=== PATIENT | male | born 1990 | race Caucasian/White ===

== ENCOUNTER 2016-12-20 14:36 | Emergency (ER) | payer SELFPAY ==
[~2016-12-20] VITALS: Ht 175.3 cm; Wt 66.2 kg
[~2016-12-20 14:36] MED LIST: ANTISEIZURE MED PO; BENTYL10 MG PO; CIPROFLOXACIN500 M1 PO; CYCLOBENZAPRINE10 MG PO; CYCLOBENZAPRINE5 MG PO; DICYCLOMINE HCL10 MG PO; DILAUDID8 MG PO; FLEXERIL10 MG PO; GABAPENTIN300 MG PO; METRONIDAZOLE500 MG PO; NAPROXEN500 MG PO; NOHOMEMEDS; PREDNISONE10 MG PO; ULTRAM50 MG PO; ZOLPIDEM TARTRA10 MG PO
[2016-12-20 15:46] LABS: CHLORIDE 107 mEq/L (99-109); POTASSIUM 3.6 mEq/L (3.7-5.4); SODIUM 140 mEq/L (136-147)
[2016-12-20 15:49] LABS: GLUCOSE 113 mg/dL (70-99)
[2016-12-20 15:50] LABS: ANION GAP 10 MEQ/L (2-14)
[2016-12-20 15:51] LABS: TOTAL BILIRUBIN 0.4 mg/dL (0.0-1.0)
[2016-12-20 15:52] LABS: ALKALINE PHOSPHATASE 71 IU/L (3-129); GFR ESTIMATE (CALCULATED) > 59 mL/min/
[2016-12-20 15:53] LABS: UREA NITROGEN (BUN) 15 mg/dL (9-23)
[2016-12-20 15:56] LABS: CREATINE KINASE 272 IU/L (1-294); EOSINOPHIL (%) 3.7 % (0-5); EOSINOPHIL COUNT 0.3 K/uL (0-0.3); HEMATOCRIT 42.3 % (38.0-50.0); IMMATURE GRANULOCYTE (%) 0.9 % (0.0-0.7); IMMATURE GRANULOCYTE COUNT 0.7 K/uL; LIPASE 35 U/L (1.0-51.0); MCH 29.2 PG (29.0-34.0); MCHC 34.5 G/DL (30.0-36.0); MCV 84.6 FL (86-99); MEAN PLAT.VOLUME 9.3 uM^3 (9.0-12.4); MONOCYTE (%) 6.5 % (3-12); MONOCYTE COUNT 0.5 K/uL (0-0.8); NEUTROPHIL COUNT 3.8 K/uL (1.8-6.4); PLATELET COUNT 320 K/uL (156-360); RBC DIS.WIDTH-SD 39.7 % (39-53); WHITE BLOOD COUNT 7.7 K/uL (4.1-10.2)
[2016-12-20 17:16] LABS: ADD MIUA? YES; BILIRUBIN NEGATIVE; BLOOD LARGE; COLOR YELLOW ((YELLOW)); GLUCOSE (STRIP) NEGATIVE; KETONES NEGATIVE; LEUKOCYTES NEGATIVE; NITRITE NEGATIVE; PROTEIN (STRIP) NEGATIVE; SPECIFIC GRAVITY 1.025 (1.000-1.030); UROBILINOGEN 0.2 MG/DL (0.2-1.0)
[2016-12-20 17:19] LABS: BACTERIA NONE SEEN /HPF; EPITHELIAL CELLS RARE /HPF; MUCUS 1+ /LPF; RED BLOOD CELLS TNTC /HPF (0-5); UCUL ADDED? NO; WHITE BLOOD CELLS 0-5 /HPF (0-5)
[2016-12-20] MEDS ORDERED: IBUPROFEN600 MG PO (19:18)
[2016-12-20] MEDS ORDERED: DELZICOL400 M1 PO (19:21)
[2016-12-20] MEDS ORDERED: IBUPROFEN800 MG PO (19:22)
[2016-12-20] MEDS ORDERED: KEPPRA500 MG PO (19:22)
[2016-12-20] MEDS ORDERED: AMOXICILLIN500 MG PO (19:22)
[2016-12-20] MEDS ORDERED: ULTRAM50 MG PO (20:31)
[2016-12-20] MEDS ORDERED: MOTRIN600 MG PO (20:31)
[2016-12-20 21:04] VITALS: BP 123/83
[2016-12-21 12:03] LABS: CHLAMYDIA TRACHOMATIS NEGATIVE; NEISSERIA GONORRHOEAE NEGATIVE
== END 2016-12-20 21:05 | disposition left against medical advice (07) ==
LOC: EME 14:36
PROVIDERS: Physician Assistant
DX: J98.2 Interstitial emphysema (principal); R10.31 Right lower quadrant pain; R31.9 Hematuria, unspecified; R30.0 Dysuria; Z88.6 Allergy status to analgesic agent; Z91.013 Allergy to seafood
CPT/HCPCS: 71275; 74177; 80053; 81003; 82550; 83690; 85025; 87086; 87491; 87591; 99281; 99285; J1885; J7030

== ENCOUNTER 2016-12-21 12:01 | Emergency (ER) | payer SELFPAY ==
[~2016-12-21] VITALS: Ht 175.3 cm; Wt 67.0 kg
[~2016-12-21 12:01] MED LIST changes: +AMOXICILLIN500 MG PO; +DELZICOL400 M1 PO; +IBUPROFEN600 MG PO; +IBUPROFEN800 MG PO; +KEPPRA500 MG PO; +MOTRIN600 MG PO
[2016-12-21 13:27] LABS: HEMATOCRIT 42.3 % (38.0-50.0); MCH 29.1 PG (29.0-34.0); MCV 85.5 FL (86-99); MEAN PLAT.VOLUME 9.6 uM^3 (9.0-12.4); PLATELET COUNT 328 K/uL (156-360); RBC DIS.WIDTH-CV 12.9 % (11.8-14.6); RBC DIS.WIDTH-SD 39.8 % (39-53); RED BLOOD COUNT 4.95 M/uL (4.00-5.50); WHITE BLOOD COUNT 7.6 K/uL (4.1-10.2)
[2016-12-21 14:00] LABS: CHLORIDE 107 mEq/L (99-109); SODIUM 139 mEq/L (136-147)
[2016-12-21 14:02] LABS: GLUCOSE 89 mg/dL (70-99)
[2016-12-21 14:03] LABS: ANION GAP 9 MEQ/L (2-14)
[2016-12-21 14:06] LABS: GFR ESTIMATE (CALCULATED) > 59 mL/min/; UREA NITROGEN (BUN) 8 mg/dL (9-23)
[2016-12-21 14:21] VITALS: BP 133/81
== END 2016-12-21 14:21 | disposition home or self-care (01) ==
LOC: EME 12:01 → RME 12:01
DX: J93.9 Pneumothorax, unspecified (principal); Z09 Encounter for follow-up examination after completed treatment for conditions other than malignant neoplasm; R06.00 Dyspnea, unspecified; R07.9 Chest pain, unspecified; Z91.81 History of falling; G40.909 Epilepsy, unspecified, not intractable, without status epilepticus; Z87.891 Personal history of nicotine dependence
CPT/HCPCS: 71020; 80048; 85027; 99281; 99284

== ENCOUNTER 2017-02-23 12:32 | Emergency (ER) | payer SELFPAY ==
[~2017-02-23] VITALS: Ht 175.3 cm; Wt 65.9 kg
[2017-02-23 13:14] LABS: HEMATOCRIT 45.9 % (38.0-50.0); MCH 28.7 PG (29.0-34.0); MCHC 33.1 G/DL (30.0-36.0); MCV 86.6 FL (86-99); PLATELET COUNT 362 K/uL (156-360); RBC DIS.WIDTH-CV 13.6 % (11.8-14.6); RBC DIS.WIDTH-SD 43.1 % (39-53); WHITE BLOOD COUNT 6.3 K/uL (4.1-10.2)
[2017-02-23 13:32] LABS: CHLORIDE 105 mEq/L (99-109); POTASSIUM 4.2 mEq/L (3.7-5.4); SODIUM 139 mEq/L (136-147)
[2017-02-23 13:34] LABS: GLUCOSE 92 mg/dL (70-99)
[2017-02-23 13:35] LABS: ANION GAP 9 MEQ/L (2-14); TROP-I INTERPRETATION NEGATIVE; TROPONIN-I < 0.01 ng/mL (0.0-0.30)
[2017-02-23 13:38] LABS: GFR ESTIMATE (CALCULATED) > 59 mL/min/
[2017-02-23 13:39] LABS: UREA NITROGEN (BUN) 12 mg/dL (9-23)
[2017-02-23] MEDS ORDERED: PROVENTIL HFA6.7 GM IH (14:08)
[2017-02-23] MEDS ORDERED: ZITHROMAX Z-PA250 MG PO (14:09)
[2017-02-23 14:18] VITALS: BP 133/91
== END 2017-02-23 14:19 | disposition home or self-care (01) ==
LOC: EME 12:32
PROVIDERS: Emergency Medicine
DX: J20.9 Acute bronchitis, unspecified (principal); R42 Dizziness and giddiness; Z87.891 Personal history of nicotine dependence
CPT/HCPCS: 71020; 80048; 84484; 85027; 93005; 94640; 99281; 99284